=== PATIENT | male | born 1995 | race Caucasian/White ===

== ENCOUNTER 2020-07-24 17:50 | Emergency (ER) | payer OTHER ==
[~2020-07-24 17:50] MED LIST: NORCO 5-325 TA1 EACH PO
[2020-07-24] MEDS ORDERED: ZYRTEC10 MG PO (19:53)
[2020-07-24] MEDS ORDERED: PREDNISONE20 MG PO (19:53)
== END 2020-07-24 21:28 | disposition home or self-care (01) ==
LOC: FER 17:50
DX: T78.3XXA Angioneurotic edema, initial encounter (principal); F17.210 Nicotine dependence, cigarettes, uncomplicated
CPT/HCPCS: 96372; J0171; J1200; J2930

== ENCOUNTER 2021-04-27 11:45 | Emergency (ER) | payer OTHER ==
[~2021-04-27 11:45] MED LIST changes: +PREDNISONE20 MG PO; +ZYRTEC10 MG PO
[2021-04-27 12:43] LABS: BILIRUBIN NEGATIVE (NEGATIVE); BLOOD NEGATIVE Ery/uL (NEGATIVE); CLARITY CLEAR (CLEAR); COLOR YELLOW (YELLOW); GLUCOSE (U) NORMAL (NORMAL); LEUKOCYTES NEGATIVE Leu/uL (NEGATIVE); NITRITE NEGATIVE (NEGATIVE); PROTEIN NEGATIVE (NEGATIVE); UROBILINOGEN 0.2 mg/dL (0.2-1.0); pH 7.5 (5.0-9.0)
[2021-04-27 12:46] LABS: BASOPHIL 0.6 % (0-2); HCT 51.2 % (42.0-52.0); HGB 17.6 g/dl (13.2-18.0); LYMPHOCYTE 26.8 % (15-48); MCH 28.9 pg (25.0-31.0); MCHC 34.4 g/dL (32.0-36.0); MCV 83.9 fL (78.0-100.0); MONOCYTE 4.8 % (0-12); MPV 11.3 fL (6.0-9.5); NEUTROPHIL 66.3 % (41-80); NRBC 0; PLT 241 K/uL (150-400); RDW 12.5 % (11.5-14.0); WBC 17.3 K/uL (4.0-10.5)
[2021-04-27 13:00] LABS: ALBUMIN 4.5 g/dL (3.4-5.0); BILIRUBIN - TOTAL 0.3 mg/dL (0.2-1.0); BUN/CREAT RATIO (CALC) 12.9 RATIO; CREATININE 0.7 mg/dL (0.67-1.17); POTASSIUM 4.3 mmol/L (3.5-5.1); TOTAL PROTEIN 8.5 g/dL (6.4-8.2)
[2021-04-27 14:56] LABS: LACTIC ACID 1.7 mmol/L (0.4-1.9)
[2021-04-27] MEDS ORDERED: ONDANSETRON HCL4 MG PO (15:03)
== END 2021-04-27 15:10 | disposition home or self-care (01) ==
LOC: FER 11:45
PROVIDERS: Nurse Practitioner Family
DX: R10.84 Generalized abdominal pain (principal); R11.2 Nausea with vomiting, unspecified; F17.210 Nicotine dependence, cigarettes, uncomplicated; Z88.0 Allergy status to penicillin
CPT/HCPCS: 36415; 80053; 81003; 83605; 85025; J1885; J2405; J7030; Q9967